=== PATIENT | female | born 1995 | race Caucasian/White ===

== ENCOUNTER 2024-06-23 22:18 | Emergency (ER) | payer SELFPAY ==
[2024-06-23 22:29] VITALS: BP 135/85; PULSE 107; RESP 18; TEMP 37.3; O2SAT 96; BMI 26.2
--- NOTE | 2024-06-23 22:51 | XRR_ITS ---
PROCEDURE INFORMATION: Exam: XR Left Ankle Exam date and time: 06/23/2024 11:02 PM Age: 29 years old Clinical indication: Injury or trauma; Fall; Blunt trauma; Left; Patient HX: Patient rolled ankle while walking down steps. Unable to bear weight. Diffuse swelling. ; Additional info: Fall/inj TECHNIQUE: Imaging protocol: Radiologic exam of the left ankle. Views: 3 or more views. COMPARISON: No relevant prior studies available. FINDINGS: Bones/joints: The ankle mortise is preserved. Accessory os trigonum. No acute fracture or dislocation. Soft tissues: Diffuse ankle swelling. XR/XR ankle LT min 3V* [id number] IMPRESSION: 1. No acute fracture or dislocation. 2. Diffuse ankle swelling.
[2024-06-24] MEDS: oxyCODONE-APAP 5-325 mg Tablet 2 TAB PO (03:35)
[2024-06-24 03:36] VITALS: PULSE 100; RESP 18; O2SAT 98
[2024-06-24 03:37] VITALS: PULSE 75; RESP 18; O2SAT 99
--- NOTE | 2024-06-24 15:45 | ED_ITS ---
HPI - Extremity Problem General: Chief complaint: Extremity Injury, Lower Stated complaint: Left ankle pain Time Seen by Provider: 06/24/24 02:48 History of Present Illness: 29 year old female fell down a couple of stairs, turning her left ankle. She has pain and swelling, mainly laterally. This was several hours ago. She was unable to bear weight due to pain. No numbness or tingling. Related Data Previous Rx's Medication Instructions Recorded ketorolac 10 mg tablet 10 mg PO TID PRN pain #10 tabs 06/24/24 Allergies Allergy/AdvReac Type Severity Reaction Status Date / Time cefaclor [From [facility]] Allergy Mild Unknown Verified 06/23/24 22:32 Physical Exam Const: COMMON NORMALS: no acute distress GENERAL APPEARANCE: cooperative; not ill appearing and not frail appearing HENMT: COMMON NORMALS: normocephalic, atraumatic and Normal external nose present HEAD & SCALP: normocephalic and atraumatic FACE & SINUS: normal facial exam and face symmetric NOSE: Normal external nose present Eye: COMMON NORMALS: Equal, round and reactive pupils present and EOMs intact bilaterally PUPIL: Yes Equal, round and reactive pupils present Neck/C-Spine: GENERAL: Yes trachea midline Chest: CHEST: Yes Symmetrical chest wall rise Resp: COMMON NORMALS: normal respiratory effort, No retractions, No use of accessory muscles and clear to auscultation bilaterally AUSCULTATION: clear to auscultation bilaterally Cardio: COMMON NORMALS: regular rate and regular rhythm RATE: regular rate RHYTHM: regular rhythm Extremity: NARRATIVE EXTREMITY EXAM: Examination of the left lower extremity reveals tenderness to the lateral ankle. There is deltoid tenderness as well. Significant soft tissue swelling. Limited range of motion due to pain. No deformity. Pulses and sensation are normal. Neuro: NICOLÁS COMA SCALE: document [facility] findings Nicolás coma scale eye opening: Spontaneous [place] coma scale verbal response: Orientated [place] coma scale motor response: Obey commands [place] coma scale total score: 15 SENSORY EXAM: Yes extremities (intact) Psych: COMMON NORMALS: speech normal SPEECH: Yes normal speech Skin: COMMON NORMALS: no rashes or lesions noted GENERAL SKIN EXAM: no rashes or lesions noted Course Vital Signs: Vital signs: Vital Signs Temperature 99.1 F 06/23/24 22:29 Pulse Rate 75 06/24/24 03:37 Respiratory Rate 18 06/24/24 03:37 Blood Pressure 135/85 06/23/24 22:29 Pulse Oximetry 99 06/24/24 03:37 Oxygen Delivery Me thod Room Air 06/23/24 22:29 MDM - Extremity (Nontraumatic) Medical Decision Making No fractures on X-ray. Significant ankle sprain. She'll be placed in a stirruup ankle brace, crutches, outpatient follow up. Ice and elevation. Toradol for pain and swelling. She assures me she is not . Lab Data Radiology Impressions Ankle X-Ray 06/23/24 22:51 IMPRESSION: 1. No acute fracture or dislocation. 2. Diffuse ankle swelling. All radiology interpretation(s) finalized by discharge Discharge Plan Discharge Patient Disposition: Home Clinical Impression: Ankle sprain and strain Condition: Stable Prescriptions: New ketorolac 10 mg tablet 10 mg PO TID PRN (Reason: pain) Qty: 10 0RF Discharge Orders: Discharge ED (Routine); Ordered 06/24/24 Ordered By: Amanuel Catherine Patient Instructions: Ankle Sprain (ED), Opioid Safety, Pain Management Activity Restrictions/Additional Instructions: Ice and elevate, especially for the next 48 hours. Medication as needed for pain and swelling. Wear the brace at all times. Crutches for weightbearing for the first few days. As pain and swelling improved, you may begin to bear weight slowly. See your doctor next week. Coding Level of Care Code ED International Manager for [facility]arate
== END 2024-06-24 03:39 | disposition home or self-care (01) ==
PROVIDERS: Emergency Provider Emergency Medicine
DX: S93.402A Sprain of unspecified ligament of left ankle, initial encounter (principal); S96.912A Strain of unspecified muscle and tendon at ankle and foot level, left foot, initial encounter; W10.8XXA Fall (on) (from) other stairs and steps, initial encounter
CPT/HCPCS: 73610; 99283